=== PATIENT | female | born 1975 | race Caucasian/White ===

== ENCOUNTER 2024-12-14 19:40 | Emergency (ER) | payer BC ==
[~2024-12-14] VITALS: Ht 165.1 cm; Wt 56.7 kg
[2024-12-14] MEDS ORDERED: BENZONATATE 100 MG CAPSULE ONE (21:02)
[2024-12-14] MEDS ORDERED: BENZ-13 PO (21:04)
[2024-12-14] MEDS ORDERED: PROM118S5 PO (21:04)
[2024-12-14] MEDS ORDERED: FLUT16SP BNOSTRILS (21:04)
[2024-12-14] MEDS: BENZONATATE 100 MG CAPSULE PO ONE (21:06)
[2024-12-14 21:15] VITALS: BP 121/73; O2SAT 99
== END 2024-12-14 21:16 | disposition home or self-care (01) ==
LOC: ER 19:40
DX: R05.9 Cough, unspecified (principal); F17.290 Nicotine dependence, other tobacco product, uncomplicated
CPT/HCPCS: 71045; A4606; A4663